=== PATIENT | female | born 1960 | race Caucasian/White ===

== ENCOUNTER → 2024-07-10 | Outpatient (CLI) | payer MEDICARE, SELFPAY ==
--- NOTE | 2024-07-10 12:10 | XR_ITS ---
Examination: PA lateral chest 2 views TECHNIQUE: Upright PA lateral chest 2 views Date and time: July 10, 2024 1327 hours INDICATIONS: Shortness of breath 2 months FINDINGS: Minor subsegmental atelectasis left base Normal heart size The osseous structures are intact No pneumonia or pulmonary edema IMPRESSION: No pneumonia or pulmonary edema
== END | disposition home or self-care (01) ==
LOC: SDIM 12:01
PROVIDERS: PCP Family Medicine; Referring Provider Family Medicine; Visit Provider Family Medicine
DX: R06.02 Shortness of breath (principal)
CPT/HCPCS: 71046